=== PATIENT | female | born 1970 | race Two or more races ===

== ENCOUNTER 2017-09-07 08:44 | Emergency (ER) | payer OTHER ==
[~2017-09-07] VITALS: Ht 160 cm; Wt 83.0 kg
[~2017-09-07 08:44] MED LIST: ALTACE10 M1; ATENOLOL50 MG; TOPROL XL25 M1; TRANXENE T-TAB7.5 MG
[2017-09-07] MEDS ORDERED: NORVASC5 MG (08:54)
[2017-09-07] MEDS ORDERED: CARVEDILOL ER20 MG (08:54)
== END 2017-09-07 11:59 | disposition home or self-care (01) ==
LOC: ER 08:44
DX: K29.70 Gastritis, unspecified, without bleeding (principal)

== ENCOUNTER 2018-07-19 19:29 | Emergency (ER) | payer OTHER ==
[~2018-07-19] VITALS: Ht 160 cm; Wt 79.4 kg
[~2018-07-19 19:29] MED LIST changes: +CARVEDILOL ER20 MG; +NORVASC5 MG
== END 2018-07-19 23:28 | disposition home or self-care (01) ==
LOC: ER 19:29
DX: R42 Dizziness and giddiness (principal)

== ENCOUNTER → 2018-10-25 | Emergency (ER) | payer OTHER ==
[~2018-10-25] VITALS: Ht 162.6 cm; Wt 86.2 kg
[~2018-10-25] MED LIST changes: +ALPRAZOLAM0.5 MG; +SKELAXIN800 MG PO; +TOPROL XL50 MG; +VASOTEC5 MG PO
== END | disposition left against medical advice (07) ==
LOC: ER 00:43
DX: Z53.20 Procedure and treatment not carried out because of patient's decision for unspecified reasons (principal)

== ENCOUNTER 2018-11-01 00:49 | Emergency (ER) | payer OTHER ==
[~2018-11-01] VITALS: Ht 160 cm; Wt 86.2 kg
[~2018-11-01 00:49] MED LIST changes: -SKELAXIN800 MG PO; -VASOTEC5 MG PO
[2018-11-01] MEDS ORDERED: VASOTEC5 MG PO (04:18)
[2018-11-01] MEDS ORDERED: SKELAXIN800 MG PO (04:18)
== END 2018-11-01 04:30 | disposition home or self-care (01) ==
LOC: ER 00:49
DX: I16.0 Hypertensive urgency (principal); I10 Essential (primary) hypertension; M62.838 Other muscle spasm

== ENCOUNTER → 2018-12-20 | Outpatient (CLI) | payer OTHER ==
[~2018-12-20] MED LIST changes: +SKELAXIN800 MG PO; +VASOTEC5 MG PO
== END | disposition home or self-care (01) ==
LOC: NUCLEAR 12-06 10:00
DX: R00.2 Palpitations (principal)

== ENCOUNTER 2019-04-03 08:02 | Emergency (ER) | payer OTHER ==
[~2019-04-03] VITALS: Ht 160 cm; Wt 85.3 kg
== END 2019-04-03 22:53 | disposition home or self-care (01) ==
LOC: ER 08:02
DX: I16.0 Hypertensive urgency (principal); I10 Essential (primary) hypertension; R51 Headache